=== PATIENT | female | born 1980 | race Caucasian/White ===

== ENCOUNTER → 2017-07-02 | Outpatient (CLI) | payer OTHER ==
[~2017-07-02] MED LIST: ALBUAER19 INH; MTR600X PO; PRENTAB26 PO
[2017-07-02 09:46] LABS: FOLLICLE STIMULAT HORMONE 11.9 IU/L
== END | disposition home or self-care (01) ==
LOC: C.LAB 08:40
PROVIDERS: ATTEND Obstetrics & Gynecology
DX: N97.9 Female infertility, unspecified (principal)

== ENCOUNTER → 2017-07-06 | Outpatient (CLI) | payer OTHER ==
--- NOTE | 2017-07-06 10:54 | [facility] Operative Report ---
Operative Report Operative Date Jul 06, 2017. Pre-Operative Diagnosis Secondary female infertility Post-Operative Diagnosis Secondary female infertility Procedure(s) Performed Hysterosalpingogram Surgeon Stone Value Analyst Surgeon(s) None Estimated Blood Loss 0 Findings Normal uterus and bilateral patent fallopian tubes Drains None Anesthesia Type None Description of Procedure Sterile technique cervix visualized grasped with a single-tooth tenaculum cleaned with Betadine radiopaque dye injected through the cervix patient tolerated well visualized uterus and bilateral fallopian tube spillage instruments removed from the cervix and vagina minimal bleeding I attest to the content of the Intraoperative Record and any orders documented therein. Any exceptions are noted below.
--- NOTE | 2017-07-06 11:01 | DIAGNOSTIC IMAGING REPORT ---
HYSTEROSALPINGOGRAM HISTORY: Infertility. FLUOROSCOPY TIME: 0.2 minutes. 4 fluoroscopic spot images submitted. TECHNIQUE: The cervix was cannulated by the birth certificate clerk-dry room attendant and water soluble contrast was instilled into the uterus under fluoroscopic guidance. Multiple spot images were obtained. FINDINGS: The uterine cavity is normal in size, shape, and position. The fallopian tubes are patent and there is free peritoneal spill bilaterally. IMPRESSION: Normal hysterosalpingogram. Electronically signed by: Alistair Olvera M.D. 07/06/2017 11:00 AM Dictated Date/Time: 07/06/2017 10:59 AM
== END | disposition home or self-care (01) ==
LOC: C.RAD 10:13
PROVIDERS: ATTEND Obstetrics & Gynecology
DX: N97.9 Female infertility, unspecified (principal)

== ENCOUNTER 2019-12-17 08:25 | Inpatient (IN) ==
--- OUTSIDE RECORDS SUMMARY | 2019-12-17 08:30 | External Medical Summary | Continuity of Care Document ---
:1980 Author Name Austin Hodges, Provider Address Unavailable Unavailable , Care Team Providers Name Role Phone Ish DO Zaida Unavailable [email or web address] PCP, UNKNOWN Unavailable Unavailable Unavailable Unavailable Unavailable Problems Secondary female infertility (628.9) (N97.9) Allergies and Adverse Reactions No Known Drug Allergies (Allergy) Medications Doxycycline Hyclate 100 MG Oral Capsule; TAKE 1 CAPSULE Twice daily Start the evening before the procedure Carroll Berman Start: 30-Jun-2017 Quantity: 6 Refills: 0 Procedures History of wisdom tooth extraction Statu s: Completed Immunizations Immunizations not documented Social History - Smoking Status Never smoked tobacco Plan of Treatment Planned Observations Planned Goals not documented Results No Known Results Results not documented Encounters Appointment; [facility], Ultrasound 27-Sep-2017 14:30 Encounter Diagnosis: Problem not documented
[2019-12-17] MEDS ORDERED: LACTATED RINGER'S 1,000 ML IV PRN (09:47)
[2019-12-17] MEDS ORDERED: OXYTOCIN 30 UNITS/500 ML BAG IV PRN ×3 (09:47→13:09)
--- NOTE | 2019-12-17 09:53 | Obstetrical Progress Note ---
Date of Service December 17, 2019 Subjective Pt doing well SROM at 0230HRS FHR; CAT1 Ctx; 2-4mins VE 3/90/-3 with fore bag Plan Pitocin augmentation discussed pro and cons of Pitocin pt agrees Results & Data ([facility]) Vital Signs (Past 12 Hours) Vital Signs Temp Pulse Resp BP 12/17/19 08:45 36.7 C 18 12/17/19 08:39 57 L 115/73
[2019-12-17 10:08] LABS: Hematocrit (blood only) 33.5 % (37-47); Hemoglobin 11.5 g/dL (12.0-16.0); Mean Corpuscular Hemoglobin 28.3 pg (25-34); Mean Corpuscular Hgb Conc 34.3 g/dL (32-36); Mean Corpuscular Volume 82.5 fL (80-100); Mean Platelet Volume 11.7 fL (7.4-10.4); Platelet Count 210 K/uL (130-400); RDW Coefficient of Variation 14.4 % (11.5-14.5); RDW Standard Deviation 42.8 fL (36.4-46.3); Red Blood Count 4.06 M/uL (4.2-5.4); White Blood Count 7.01 K/uL (4.8-10.8)
[2019-12-17] MEDS ORDERED: BUPIVACAINE 0.25% 30 ML VIAL ONE (11:48)
[2019-12-17] MEDS ORDERED: fentaNYL citrate 100 MCG/2 ML VIAL ONE (11:48)
[2019-12-17] MEDS ORDERED: ePHEDrine sulfate 50 MG/ML AMP ONE (11:48)
[2019-12-17] MEDS ORDERED: fentaNYL 2MCG/ML ROPIV 1.25MG/ML 100 ML BAG EPI ONE (11:49)
--- NOTE | 2019-12-17 12:24 | Anesthesiology Consultation ---
Date of Service December 17, 2019 Assessment & Plan Chart Review Chart Review: Acceptable Risk for Labor Epidural Consults Requested none History Height/Weight Height: 5 ft 3 in Weight: 66.678 kg Allergies Allergy/AdvReac Type Severity Reaction Status Date / Time No Known Allergies Allergy Unverified 09/29/13 19:37 Medications Home Medications Medication Instructions Recorded Confirmed Last Taken Albuterol Inhaler (VENTOLIN 2 puff INHALATION QID #5 inhaler 09/28/13 12/17/19 Unknown INHALER) Multivit/Min/Iron/Fol Ac/Pren 1 tab PO DAILY #0 tab 09/28/13 12/17/19 12/16/19 10:00 ( Vitamin) Active Medications Generic Name Dose Route Start Last Admin Trade Name Freq PRN Reason Stop Dose Admin Lactated Ringer's 1,000 mls @ 125 mls/hr 12/17/19 09:47 12/17/19 10:09 Lr IV 12/19/19 09:46 125 mls/hr .Q8H PRN Administration L&D Protocol Protocol Oxytocin 30 units in 500 mls @ 333.333 mls/hr 12/17/19 09:47 12/17/19 12:54 Pitocin IV 01/16/20 09:46 20 units/hr .Q1H30M PRN 333.3 mls/hr Bleeding Control Administration Protocol 20 UNITS/HR Oxytocin 30 units in 500 mls @ 4 mls/hr 12/17/19 09:48 12/17/19 10:41 Pitocin IV 12/19/19 09:47 0.24 units/hr .Q24H PRN 4 mls/hr Labor Induction/Augmentation Titration Protocol 0.24 UNITS/HR Social History Smoking Status: Never smoker Hx Alcohol Use: No Hx Substance Use: No Physical Exam Vital Signs Last Vital Signs Temp 36.7 C 12/17/19 08:45 Pulse 83 12/17/19 12:59 Resp 18 12/17/19 10:20 BP 123/59 L 12/17/19 12:58 Pulse Ox 97 12/17/19 12:59 Testing Laboratory Results 12/17/19 09:56
[2019-12-17] MEDS ORDERED: miSOPROStoL 200 MCG TAB ONE (12:54)
[2019-12-17] MEDS ORDERED: METHYLERGONOVINE MALEATE 0.2 MG/ML AMP ONE (12:55)
[2019-12-17] MEDS ORDERED: fentaNYL 2MCG/ML ROPIV 1.25MG/ML 100 ML BAG EPI PRN (13:03)
[2019-12-17] MEDS ORDERED: NALOXONE HCL 0.4 MG/1 ML VIAL/CARP IV PRN (13:03)
[2019-12-17] MEDS ORDERED: ePHEDrine sulfate 50 MG/ML AMP IV PRN (13:03)
[2019-12-17] MEDS ORDERED: DiphenhydrAMINE HCL 50 MG/ML VIAL IV PRN (13:03)
[2019-12-17] MEDS ORDERED: NALOXONE HCL 1 MG in SODIUM CHLORIDE 0.9% 1000ML 1,000 ML IV PRN (13:03)
[2019-12-17] MEDS ORDERED: miSOPROStoL 200 MCG TAB PR ONE (13:09)
[2019-12-17] MEDS ORDERED: DIPHTHERIA/TETANUS/PERTUSSIS 0.5 ML SYR/VIAL IM ONE (13:09)
[2019-12-17] MEDS ORDERED: bisacodyL 10 MG SUPP PR PRN (13:09)
[2019-12-17] MEDS ORDERED: METHYLERGONOVINE MALEATE 0.2 MG/ML AMP IM ONE (13:09)
[2019-12-17] MEDS ORDERED: ACETAMINOPHEN 325 MG TAB PO PRN (13:09)
[2019-12-17] MEDS ORDERED: SUPERCREAM 0.870% 15 GM JAR EXT PRN (13:09)
[2019-12-17] MEDS ORDERED: BENZOCAINE 20% AER SPR 82.5 GM CAN EXT PRN (13:09)
[2019-12-17] MEDS ORDERED: HYDROCORTISONE ACETATE 25 MG SUPP PR PRN (13:09)
--- NOTE | 2019-12-17 13:21 | Delivery Summary ---
DATE OF OPERATION: 12/17/2019 DELIVERY NOTE The patient delivered a live female in left occiput anterior presentation. There was no nuchal cord. Infant was delivered and placed on mother's abdomen. Cord was clamped after 1 minute. Cord blood was obtained. The placenta was spontaneously delivered. Estimated blood loss is 450 mL. Inspection of the placenta shows normal grossly looking placenta with 3-vessel cord. Infant's is 9 and 10, weight is pending via pediatrics. Inspection of the perineum shows a ____-degree midline laceration, which was repaired with Vicryl stitch. Rectal exam post repair showed good sphincter tone. No sutures are palpated in the rectum. All instruments were removed from the vagina and accounted for x2 including sponges, needles and retractors. Baby and mother are doing well in recovery. I attest to the content of the Intraoperative Record and any orders documented therein. Any exception s are noted below.
--- NOTE | 2019-12-17 14:54 | Anesthesia Procedure Note ---
Date of Service December 17, 2019 Anesthesia Post Epidural Note Vital Signs Vital Signs: Temp Pulse Resp BP Pulse Ox 36.7 C 54 L 18 147/68 H 97 12/17/19 08:45 12/17/19 14:44 12/17/19 11:50 12/17/19 14:44 12/17/19 12:59 Pain Intensity Abdomen: Pain Intensity: 0 Notes Mental Status: alert / awake / arousable Nausea / Vomiting: adequately controlled Pain: adequately controlled Airway Patency, RR, SpO2: stable & adequate BP & HR: stable & adequate Hydration State: stable & adequate Neuraxial Anesthesia: was administered and sensory block is resolving Anesthetic Complications: no major complications apparent and Pt Satisfied with anesthetic care Epidural: Removed without complications and With tip intact
[2019-12-17] MEDS: IBUPROFEN 600 MG TAB PO PRN (16:48)
[2019-12-17] MEDS: DOCUSATE SODIUM 100 MG CAP PO SCH (20:44)
[2019-12-18] MEDS: IBUPROFEN 600 MG TAB PO PRN ×3 (00:10→10:26)
[2019-12-18 06:40] LABS: Hematocrit (blood only) 31.2 % (37-47); Hemoglobin 10.8 g/dL (12.0-16.0); Mean Corpuscular Hemoglobin 28.6 pg (25-34); Mean Corpuscular Hgb Conc 34.6 g/dL (32-36); Mean Corpuscular Volume 82.5 fL (80-100); Platelet Count 203 K/uL (130-400); RDW Coefficient of Variation 14.5 % (11.5-14.5); RDW Standard Deviation 43.1 fL (36.4-46.3); Red Blood Count 3.78 M/uL (4.2-5.4); White Blood Count 11.39 K/uL (4.8-10.8)
--- NOTE | 2019-12-18 07:39 | Obstetrical Progress Note ---
Date of Service December 18, 2019 Assessment & Plan Admission and Anticipated Discharge Date Admission Date: December 17, 2019 Subjective Patient is seen and examined. She feels well, no complaints. Ambulating without dizziness Voiding without difficulty Tolerating regular diet with out N&V Bleeding is minimal No fever/ chills/ CP/ SOB/ N&V/ Leg pain Breast feeding without problems Lab Results 12/17/19 12/18/19 Range/Units 09:56 06:11 WBC 7.01 11.39 H (4.8-10.8) K/uL RBC 4.06 L 3.78 L (4.2-5.4) M/uL Hgb 11.5 L 10.8 L (12.0-16.0) g/dL Hct 33.5 L 31.2 L (37-47) % MCV 82.5 82.5 (80-100) fL MCH 28.3 28.6 (25-34) pg MCHC 34.3 34.6 (32-36) g/dL RDW Std Deviation 42.8 43.1 (36.4-46.3) fL RDW Coeff of [place] 14.4 14.5 (11.5-14.5) % Plt Count 210 203 (130-400) K/uL MPV 11.7 H 12.0 H (7.4-10.4) fL Vital Signs Temp Pulse Resp BP 12/18/19 04:15 36.7 C 60 16 /12/18/19 00:10 36.4 C L 70 18 112/74 PE: General: Alert, orientedx3, NAD Abd: soft, NT, fundus firm, below Umbilicus Perineum intact, Lochia rubra minimal Ext; NT, no edema AP: 39 yo s/p , ppd# 1 VSS Afebrile doing well Continue routine care All questions were answered D/C home tomorrow Results & Data ([facility]) Vital Signs (Past 12 Hours) Vital Signs Temp Pulse Resp BP 12/18/19 04:15 36.7 C 60 16 /67 12/18/19 00:10 36.4 C L 70 18 112/74
[2019-12-18] MEDS ORDERED: PRENATAL VITAMIN 1 TAB PO SCH (08:00)
[2019-12-18] MEDS: DOCUSATE SODIUM 100 MG CAP PO SCH (08:41)
[2019-12-18] MEDS ORDERED: bisacodyL 5 MG TABEC PO SCH (20:00)
== END 2019-12-18 14:50 | disposition home or self-care (01) | DRG 807 ==
LOC: OPB 08:25 → 4S1 08:27 → 4S2 17:53